=== PATIENT | male | born 1985 | race Two or more races ===

== ENCOUNTER 2020-05-08 16:57 | Inpatient (IN) | payer OTHER, MEDICAID ==
[~2020-05-08] VITALS: Ht 165.1 cm; Wt 59.0 kg
[2020-05-08 18:23] LABS: HEMATOCRIT. 41.9 % (42.0-52.0); HEMOGLOBIN. 14.1 g/dL (14.0-18.0); MEAN CORPUSCULAR HEMOGLOBIN 27.4 pg (28.0-32.0); MEAN CORPUSCULAR VOLUME 81.4 fL (80.0-94.0); MEAN PLATELET VOLUME 7.2 fl (7.4-10.4); PLATELET 215 x1000/uL (130-400); RED BLOOD CELL COUNT 5.14 mill/uL (4.7-6.1)
[2020-05-08 18:31] LABS: CLARITY URINE CLEAR (CLEAR); COLOR URINE YELLOW (YELLOW); KETONES URINE 2+ (NEGATIVE); LEUKOCYTE ESTERASE URINE NEGATIVE (NEGATIVE); NITRITE URINE NEGATIVE (NEGATIVE); OCCULT BLOOD URINE 2+ (NEGATIVE); PROTEIN URINE 1+ (NEGATIVE); SPECIFIC GRAVITY URINE 1.015 (1.005-1.030); UROBILINOGEN URINE 0.2 E.U./dL (0.2-1.0)
[2020-05-08 18:32] LABS: CHLORIDE 95 mEq/L (98-107)
[2020-05-08 18:33] LABS: PROTHROMBIN TIME 11.2 sec (9.6-11.0)
[2020-05-08] MEDS ORDERED: ONDANSETRON HCL 4MG/2ML INJ IV STA (18:38)
[2020-05-08] MEDS ORDERED: MORPHINE SULFATE 4 MG/ML CPJ (NOT FOR IM USE) IV STA (18:38)
[2020-05-08 18:41] LABS: *AMPHETAMINES SCREEN URINE NEGATIVE (NEGATIVE); *BARBITURATES SCREEN URINE NEGATIVE (NEGATIVE); *BENZODIAZEPINES SCREEN URINE NEGATIVE (NEGATIVE); *COCAINE SCREEN URINE NEGATIVE (NEGATIVE)
[2020-05-08 18:42] LABS: CANNABINOID URINE SCREEN PRESUMTIVE POSITIVE (NEGATIVE); METHADONE URINE SCREEN NEGATIVE (NEGATIVE); OPIATES URINE SCREEN NEGATIVE (NEGATIVE); PHENCYCLIDINE URINE SCREEN NEGATIVE (NEGATIVE)
[2020-05-08] MEDS ORDERED: SODIUM CHLORIDE 0.9% 1,000 ML IV ONE (18:45)
[2020-05-08] MEDS ORDERED: IOHEXOL-300 100 ML BOTTLE ONE (19:12)
[2020-05-08 19:21] LABS: INR 1.1; PROTHROMBIN TIME 11.3 sec (9.6-11.0)
[2020-05-08 19:37] LABS: PLATELET ESTIMATE NORMAL
[2020-05-08] MEDS ORDERED: PIPERACILLIN/TAZOBACTAM 3.375GM/50ML PREMIX IV ONE (21:45)
[2020-05-08] MEDS ORDERED: PIPERACILLIN/TAZ 3.375G PREMIX 50 ML IV NR (21:45)
[2020-05-08] MEDS ORDERED: SODIUM CHLORIDE 0.9% 1,000 ML IV SCH (22:30)
[2020-05-08] MEDS ORDERED: DIPHENHYDRAMINE 50MG/ML VIAL IV PRN (22:30)
[2020-05-08] MEDS ORDERED: FOLIC ACID 1 MG, THIAMINE HCL 100 MG in SODIUM CHLORIDE 0.9% 1,000 ML IV SCH (22:30)
[2020-05-08] MEDS ORDERED: SKIN ADHESIVE 0.7 GM EA TOP ONE (22:35)
[2020-05-08] MEDS ORDERED: BUPIVACAINE HCL 0.5% (5MG/ML) 50ML ONE (22:36)
[2020-05-08] MEDS ORDERED: MULTIVITAMINS,THER W-MINERALS TABLET PO NR (23:30)
[2020-05-08] MEDS ORDERED: FENTANYL CITRATE/PF 50MCG/ML 2ML VIAL ONE (23:40)
[2020-05-08] MEDS ORDERED: ROCURONIUM BROMIDE 10MG/ML VIAL 5ML IV ONE (23:41)
[2020-05-08] MEDS ORDERED: NEOSTIGMINE METHYLSULFATE 1MG/ML 10 ML VIAL ONE (23:41)
[2020-05-08] MEDS ORDERED: MIDAZOLAM HCL 2 MG/2 ML VIAL ONE (23:41)
[2020-05-08] MEDS ORDERED: PROPOFOL 200MG/20ML VIAL IV ONE (23:41)
[2020-05-08] MEDS ORDERED: GLYCOPYRROLATE 0.2 MG/ML 2ML VIAL ONE (23:41)
[2020-05-08] MEDS ORDERED: SODIUM CHLORIDE 0.9% 10ML VIAL ONE (23:41)
[2020-05-08] MEDS ORDERED: ONDANSETRON HCL 4MG/2ML INJ ONE (23:41)
[2020-05-08] MEDS ORDERED: METOCLOPRAMIDE HCL 10MG/2ML VIAL ONE (23:41)
[2020-05-08] MEDS ORDERED: SUCCINYLCHOLINE CHLORIDE 200MG/10ML IV ONE (23:41)
[2020-05-08] MEDS ORDERED: DEXT 5%/0.45% NACL KCL 20MEQ/L 1,000 ML IV SCH (23:45)
[2020-05-08] MEDS ORDERED: ONDANSETRON HCL 4MG/2ML INJ IV PRN (23:45)
[2020-05-08] MEDS ORDERED: POTASSIUM CHLORIDE INJ 40 MEQ in DEXT 5% WATER 500 ML IV NR (23:45)
[2020-05-08] MEDS ORDERED: MORPHINE SULFATE 4 MG/ML CPJ (NOT FOR IM USE) IV PRN (23:45)
[2020-05-08] MEDS ORDERED: HYDROCODONE/ACETAMINOPHEN 5/325MG TABLET PO PRN ×2 (23:45)
[2020-05-08] MEDS ORDERED: MORPHINE SULFATE 2 MG/ML CPJ (NOT FOR IM USE) IV PRN (23:45)
[2020-05-09] VITALS (7 sets, daily range): BP systolic 96–111; BP diastolic 57–70
[2020-05-09] MEDS ORDERED: ONDANSETRON HCL 4MG/2ML INJ IV PRN
[2020-05-09] MEDS ORDERED: HYDROMORPHONE HCL/PF 2MG/ML CPJ IV PRN
[2020-05-09] MEDS ORDERED: MORPHINE SULFATE 2 MG/ML CPJ (NOT FOR IM USE) IV PRN
[2020-05-09] MEDS ORDERED: SODIUM CHLORIDE 0.9% 1,000 ML IV ONE
[2020-05-09] MEDS ORDERED: MEPERIDINE HCL/PF 25MG/ML CPJ IV PRN ×2
[2020-05-09] MEDS ORDERED: POTASSIUM CHLORIDE INJ 40 MEQ in DEXT 5% WATER 500 ML IV NR (04:00)
[2020-05-09] MEDS: SODIUM CHLORIDE 0.9% INJ 3ML FLUSH IVF SCH ×3 (05:24→21:23)
[2020-05-09] MEDS ORDERED: PIPERACILLIN/TAZ 3.375G PREMIX 50 ML IV SCH (07:00)
[2020-05-09 07:10] LABS: HEMATOCRIT. 35.4 % (42.0-52.0); HEMOGLOBIN. 11.5 g/dL (14.0-18.0); MEAN CORPUSCULAR VOLUME 83.2 fL (80.0-94.0); MEAN PLATELET VOLUME 7.4 fl (7.4-10.4); PLATELET 178 x1000/uL (130-400); RED BLOOD CELL COUNT 4.25 mill/uL (4.7-6.1); RED CELL DISTRIBUTION WIDTH 14.2 % (11.6-14.6)
[2020-05-09 07:44] LABS: CHLORIDE 105 mEq/L (98-107)
[2020-05-09] MEDS ORDERED: FOLIC ACID 1 MG, THIAMINE HCL 100 MG in SODIUM CHLORIDE 0.9% 1,000 ML IV SCH (08:00)
[2020-05-09] MEDS: PIPERACILLIN/TAZOBACTAM 3.375 G in DEXT 5% WATER 100 ML IV SCH ×2 (08:08→15:51)
[2020-05-09] MEDS: FAMOTIDINE 20MG/2ML VIAL IV SCH ×2 (08:09→21:23)
[2020-05-09] MEDS ORDERED: MULTIVITAMINS,THER W-MINERALS TABLET PO NR (09:00)
[2020-05-09] MEDS ORDERED: INFLUENZA VACCINE 05/PF 0.5 ML VIAL IM ONE (10:00)
[2020-05-09] MEDS ORDERED: POTASSIUM PHOS,M-BASIC-D-BASIC 20 MMOL in DEXT 5% WATER 243.3333 ML IV NR (15:00)
[2020-05-09 15:05] LABS: PLATELET ESTIMATE NORMAL
[2020-05-09] MEDS: DEXT 5%/0.45% NACL KCL 20MEQ/L 1,000 ML IV SCH (15:51)
[2020-05-10] VITALS: BP 109/66
[2020-05-10] MEDS: PIPERACILLIN/TAZOBACTAM 3.375 G in DEXT 5% WATER 100 ML IV SCH ×4 (01:08→21:29)
[2020-05-10] MEDS: DEXT 5%/0.45% NACL KCL 20MEQ/L 1,000 ML IV SCH ×3 (01:08→21:26)
[2020-05-10 04:00] VITALS: BP 104/47
[2020-05-10] MEDS: SODIUM CHLORIDE 0.9% INJ 3ML FLUSH IVF SCH ×3 (05:53→21:29)
[2020-05-10] MEDS: ONDANSETRON HCL 4MG/2ML INJ IV PRN ×3 (07:58→18:14)
[2020-05-10 08:00] VITALS: BP 116/71
[2020-05-10] MEDS: FAMOTIDINE 20MG/2ML VIAL IV SCH (08:03)
[2020-05-10 12:00] VITALS: BP 114/72
[2020-05-10] MEDS ORDERED: ACETAMINOPHEN 325MG TABLET PO PRN (12:00)
[2020-05-10] MEDS: PANTOPRAZOLE SODIUM 40 MG/VIAL IV SCH (12:17)
[2020-05-10 16:00] VITALS: BP 111/71
[2020-05-10 20:00] VITALS: BP 114/73
[2020-05-10] MEDS: LORAZEPAM 2MG/ML CPJ IV PRN (22:42)
[2020-05-11] VITALS: BP 94/60
[2020-05-11] MEDS: PIPERACILLIN/TAZOBACTAM 3.375 G in DEXT 5% WATER 100 ML IV SCH ×4 (03:00→21:24)
[2020-05-11 04:00] VITALS: BP 110/68
[2020-05-11] MEDS: SODIUM CHLORIDE 0.9% INJ 3ML FLUSH IVF SCH ×3 (05:46→21:25)
[2020-05-11 06:28] LABS: HEMATOCRIT. 36.4 % (42.0-52.0); HEMOGLOBIN. 12.2 g/dL (14.0-18.0); MEAN CORPUSCULAR HEMOGLOBIN 27.4 pg (28.0-32.0); MEAN PLATELET VOLUME 7.1 fl (7.4-10.4); PLATELET 219 x1000/uL (130-400); RED BLOOD CELL COUNT 4.43 mill/uL (4.7-6.1); RED CELL DISTRIBUTION WIDTH 13.8 % (11.6-14.6)
[2020-05-11 06:42] LABS: CHLORIDE 101 mEq/L (98-107)
[2020-05-11 07:22] LABS: PHOSPHORUS 2.4 mg/dL (2.5-4.9)
[2020-05-11 08:00] VITALS: BP 154/75
[2020-05-11] MEDS: PANTOPRAZOLE SODIUM 40 MG/VIAL IV SCH (08:59)
[2020-05-11] MEDS: DEXT 5%/0.45% NACL KCL 20MEQ/L 1,000 ML IV SCH (10:00)
[2020-05-11] MEDS: ONDANSETRON HCL 4MG/2ML INJ IV PRN ×3 (10:00→21:39)
[2020-05-11 12:00] VITALS: BP 108/69
[2020-05-11 14:03] LABS: PLATELET ESTIMATE NORMAL
[2020-05-11 16:00] VITALS: BP 109/75
[2020-05-11 20:00] VITALS: BP 118/73
[2020-05-11] MEDS: SODIUM CHLORIDE 0.9% 1,000 ML IV SCH (21:24)
[2020-05-11] MEDS: CHLORDIAZEPOXIDE 25MG CAPSULE PO SCH (21:25)
[2020-05-11] MEDS ORDERED: THIAMINE HCL 100 MG in SODIUM CHLORIDE 0.9% 49 ML IV NR (22:00)
[2020-05-11] MEDS ORDERED: POTASSIUM PHOS,M-BASIC-D-BASIC 15 MMOL in DEXT 5% WATER 245 ML IV NR (22:00)
[2020-05-11] MEDS: LORAZEPAM 2MG/ML CPJ IV PRN (23:16)
[2020-05-12 00:30] VITALS: BP 112/67
[2020-05-12] MEDS: PIPERACILLIN/TAZOBACTAM 3.375 G in DEXT 5% WATER 100 ML IV SCH ×3 (02:18→15:26)
[2020-05-12] MEDS: ONDANSETRON HCL 4MG/2ML INJ IV PRN ×3 (03:59→13:42)
[2020-05-12 04:00] VITALS: BP 101/62
[2020-05-12] MEDS: SODIUM CHLORIDE 0.9% INJ 3ML FLUSH IVF SCH ×2 (05:41→13:42)
[2020-05-12] MEDS: CHLORDIAZEPOXIDE 25MG CAPSULE PO SCH ×2 (05:41→14:00)
[2020-05-12 06:46] LABS: HEMOGLOBIN. 12.1 g/dL (14.0-18.0); MEAN CORPUSCULAR HEMOGLOBIN 27.6 pg (28.0-32.0); MEAN CORPUSCULAR VOLUME 82.2 fL (80.0-94.0); PLATELET 252 x1000/uL (130-400); RED BLOOD CELL COUNT 4.38 mill/uL (4.7-6.1); RED CELL DISTRIBUTION WIDTH 13.7 % (11.6-14.6)
[2020-05-12 06:58] LABS: CHLORIDE 100 mEq/L (98-107)
[2020-05-12 07:06] LABS: PHOSPHORUS 3.4 mg/dL (2.5-4.9)
[2020-05-12 08:00] VITALS: BP 108/78
[2020-05-12] MEDS: SODIUM CHLORIDE 0.9% 1,000 ML IV SCH (08:28)
[2020-05-12] MEDS: PANTOPRAZOLE SODIUM 40 MG/VIAL IV SCH (08:28)
[2020-05-12] MEDS ORDERED: POTASSIUM CHLORIDE 20MEQ TABLET SR PO SCH (09:00)
[2020-05-12 09:13] LABS: PLATELET ESTIMATE NORMAL
[2020-05-12 12:00] VITALS: BP 117/80
[2020-05-12 16:05] VITALS: BP 111/77
[2020-05-12 16:59] VITALS: BP 111/77
== END 2020-05-12 17:45 | disposition home or self-care (01) | DRG 854 ==
LOC: ER 16:57 → EDBEDREQ 21:35 → EDBEDREQTM 21:35 → 6EST 21:54 → EDBEDREQTM 22:03 → EDBEDREQSVC 22:03 → ENRESERV 23:30
PROVIDERS: ADMIT Internal Medicine; ATTEND Internal Medicine
PROC: 0DTJ4ZZ Resection of Appendix, Percutaneous Endoscopic Approach (ICD-10-PCS; principal; 2020-05-08)
DX: A41.9 Sepsis, unspecified organism (principal); K35.80 Unspecified acute appendicitis; E87.1 Hypo-osmolality and hyponatremia; F10.239 Alcohol dependence with withdrawal, unspecified; E83.39 Other disorders of phosphorus metabolism; E87.6 Hypokalemia; F12.90 Cannabis use, unspecified, uncomplicated; K76.0 Fatty (change of) liver, not elsewhere classified; Y90.9 Presence of alcohol in blood, level not specified; Z20.822 Contact with and (suspected) exposure to COVID-19
CPT/HCPCS: 36415; 74022; 74177; 80053; 80305; 80320; 81003; 83605; 83735; 84100; 85025; 86850; 86900; 87426; 88304; 93005; 99285; C9113; J0330; J2060; J2250; J2270; J2405; J2543; J2704; J2710; J2765; J3010; J3411; J3480; J3490; J7030; J7040; J7060; Q9967; G0480